=== PATIENT | female | born 1950 ===

== ENCOUNTER 2018-02-12 03:55 | Outpatient (CLI) | payer MEDICARE, OTHER | END 2018-02-12 23:59 | disposition home or self-care (01) | LOC: DIABETIC 03:55 | PROVIDERS: ATTEND Specialist | DX: E11.9 Type 2 diabetes mellitus without complications (principal) | CPT/HCPCS: G0108 ==

== ENCOUNTER 2018-05-07 04:13 | Outpatient (CLI) | payer MEDICARE, OTHER | END 2018-05-07 23:59 | disposition home or self-care (01) | LOC: DIABETIC 04:13 | PROVIDERS: ATTEND Specialist | DX: E11.9 Type 2 diabetes mellitus without complications (principal) | CPT/HCPCS: G0108 ==

== ENCOUNTER 2019-03-04 01:02 | Outpatient (CLI) | payer MEDICARE, OTHER | END 2019-03-04 23:59 | disposition home or self-care (01) | LOC: DIABETIC 01:02 | PROVIDERS: ATTEND Specialist | DX: E11.65 Type 2 diabetes mellitus with hyperglycemia (principal); Z79.4 Long term (current) use of insulin; Z79.84 Long term (current) use of oral hypoglycemic drugs; Z79.899 Other long term (current) drug therapy | CPT/HCPCS: G0108 ==

== ENCOUNTER 2019-06-04 02:33 | Outpatient (CLI) | payer MEDICARE, OTHER | END 2019-06-04 23:59 | disposition home or self-care (01) | LOC: DIABETIC 02:33 | PROVIDERS: ATTEND Specialist | DX: E11.9 Type 2 diabetes mellitus without complications (principal); Z79.4 Long term (current) use of insulin; Z79.84 Long term (current) use of oral hypoglycemic drugs; Z79.899 Other long term (current) drug therapy; Z79.82 Long term (current) use of aspirin | CPT/HCPCS: G0108 ==

== ENCOUNTER 2019-12-02 04:21 | Outpatient (CLI) | payer MEDICARE, OTHER | END 2019-12-02 23:59 | disposition home or self-care (01) | LOC: DIABETIC 04:21 | PROVIDERS: ATTEND Specialist | DX: E11.9 Type 2 diabetes mellitus without complications (principal) | CPT/HCPCS: G0108 ==